=== PATIENT | male | born 1945 | race Caucasian/White ===

== ENCOUNTER 2020-08-22 06:39 | Day surgery (SDC) | payer MEDICARE ==
[~2020-08-22] VITALS: Ht 188 cm; Wt 109.8 kg
[2020-08-22] VITALS (18 sets, daily range): BP systolic 111–162; BP diastolic 55–82
[~2020-08-22 06:39] MED LIST: ACET1TAB25 PO; AEC81 PO; ATOR10 PO; BISA-72 PO; DOXE10CA2 PO; FAMO20TA8 PO; FLUT1BLS3 IH; FURO20TA4 PO; GABA300C PO; METF-444 PO; METO100T7 PO; MORPHINE PEG; MULT-1367 PO; SODIUM CHLORIDE 0.9% 1000ML 1,000 ML IV ONE; SPIR25TA PO; SPIR25TA6 PO; SUCR1TAB2 PO; TELM80TA10 PO; TICA90TA PO; ZOLP5TAB2 PO
[2020-08-22] MEDS ORDERED: LIDOCAINE HCL-MPF 2% 5ML VIAL ONE (08:11)
[2020-08-22] MEDS ORDERED: PROPOFOL 10 MG/ML 20ML VIAL IV ONE ×4 (08:11→08:54)
[2020-08-22] MEDS ORDERED: GLYCOPYRROLATE 1 MG/5 ML SYRINGE ONE (08:11)
[2020-08-22] MEDS ORDERED: SUCCINYLCHOLINE 200MG/10ML SYR ONE (08:11)
== END 2020-08-22 11:55 | disposition home or self-care (01) ==
LOC: DAH 06:39 → ENDO 06:39
PROVIDERS: ATTEND Internal Medicine
DX: C25.0 Malignant neoplasm of head of pancreas (principal); Z20.828 Contact with and (suspected) exposure to other viral communicable diseases; C78.7 Secondary malignant neoplasm of liver and intrahepatic bile duct; K31.89 Other diseases of stomach and duodenum; I10 Essential (primary) hypertension; I25.2 Old myocardial infarction; Z95.0 Presence of cardiac pacemaker; Z79.01 Long term (current) use of anticoagulants
CPT/HCPCS: 43242; 82948 ×2; 88173; 88305; 88341; 88342; 93005; A4215 ×2; A4221; A4222; A4223; A4606; A4620; A4663; C9803; J0330; J2704 ×4; J3490 ×2; J7030; U0003